=== PATIENT | female | born 1995 | race Caucasian/White ===

== ENCOUNTER 2018-10-04 08:20 | Day surgery (SDC) | payer BC ==
[2018-10-03 17:32] VITALS: BMI 22.8
[2018-10-04] MEDS ORDERED: ceFAZolin SODIUM 1 GM VIAL ONE ×3 (09:01→14:41)
[2018-10-04] MEDS ORDERED: MIDAZOLAM HCL 2 MG/2 ML SINGLE DOSE VIAL ONE (09:39)
[2018-10-04] MEDS ORDERED: LIDOCAINE HCL/PF 2% SDV 5ML VIAL ONE (09:40)
[2018-10-04] MEDS ORDERED: DEXAMETHASONE SOD PHOSPHATE 4 MG/1 ML VIAL ONE (09:40)
[2018-10-04] MEDS ORDERED: SODIUM CHLORIDE 0.9% P/F 10 ML VIAL IJ ONE ×2 (09:40→14:41)
[2018-10-04] MEDS ORDERED: OXYMETAZOLINE 0.05% NASAL SOLUTION 15 ML BOTTLE NS ONE ×2 (10:15→11:07)
[2018-10-04] MEDS ORDERED: ceFAZolin SODIUM 1 GM VIAL IVPB ONE (10:30)
[2018-10-04] MEDS ORDERED: KETAMINE HCL 200 MG/20 ML VIAL ONE (10:43)
[2018-10-04] MEDS ORDERED: PROMETHAZINE HCL 25 MG/1 ML VIAL IVPUSH PRN (10:52)
[2018-10-04] MEDS ORDERED: oxyCODONE HCL 5 MG TABLET PO PRN ×3 (10:52→16:34)
[2018-10-04] MEDS ORDERED: ONDANSETRON 4 MG/2 ML VIAL IVPUSH PRN (10:52)
[2018-10-04] MEDS ORDERED: LACTATED RINGERS SOLUTION 1,000 ML IV SCH ×2 (11:00→17:00)
[2018-10-04] MEDS ORDERED: LIDOCAINE 1%/EPI 1:100000 (50 ML MULTI DOSE VIAL) NR ONE ×2 (11:07)
[2018-10-04] MEDS ORDERED: ePHEDrine SULFATE 50 MG/1 ML AMPULE ONE (11:13)
[2018-10-04] MEDS ORDERED: PROPOFOL 20 ML ONE ×2 (12:06→14:10)
[2018-10-04] MEDS ORDERED: KETOROLAC TROMETHAMINE 30 MG/1 ML VIAL ONE (13:49)
[2018-10-04] MEDS ORDERED: NEOSTIGMINE METHYLSULFATE 0.5 MG/ML - 10 ML MDV ONE (15:31)
[2018-10-04] MEDS ORDERED: GLYCOPYRROLATE 0.2 MG/1 ML VIAL ONE (15:31)
[2018-10-04] MEDS ORDERED: ACETAMINOPHEN 1000 MG/100 ML VIAL (NON FORMULARY) IVPB ONE (16:30)
[2018-10-04] MEDS ORDERED: ONDANSETRON 4 MG/2 ML VIAL IVPB PRN (16:34)
[2018-10-04 18:02] VITALS: BP 113/60; PULSE 69; TEMP 97.3
--- NOTE | 2018-10-05 01:01 | OP ---
DATE OF OPERATION: 10/04/2018 TITLE OF PROCEDURE: Septoplasty with correction of nasal tip and dorsal deformity. ATTENDING SURGEON: Alejandro Castro MD TELEVISION NEWS PHOTOGRAPHER: There are no assistants. ANESTHESIA: General endotracheal anesthesia. The patient is marked in the holding area, awake and aware of the potential scars. She is counseled thoroughly on all risks, benefits, and alternatives to the procedure, understands, and agrees to proceed. Patient is given a g of Ancef preoperatively, brought to the operating room, and placed in a supine position. Position is carefully checked by surgical and anesthesia team. Pinzon catheter was placed and removed at the end of the procedure. After anesthesia was given, the patient is prepared with Afrin-soaked cottonoids in each nostril as well as a total of 10 mL of 1% lidocaine with 1:100,000 epinephrine injected into the septum as well as into the areas for dissection. At this point, the throat pack is placed which was removed at the end of the procedure. It should be noted that the Pinzon catheter was removed the end of the procedure. At this point, patient was then prepped and draped in standard surgical fashion. A timeout is called. Patient, procedure, site, and side were verified. A transcolumellar incision was made, and this was connected to bilateral running incisions at the caudal border of the lower lateral cartilages. The incisions are connected, and dissection is carried at a level of the lower lateral cartilages leaving well vascularized subcutaneous tissue on the nasal skin. Dissection was then carried over the nasal dorsum where the dorsum is fully exposed exposing cartilaginous and dorsal bump. The cartilages are then temporarily with stay sutures, and anterior septal angle is identified. The septum is dissected first with dental amalgam to expose the cartilage and then using Jay elevator to continue in a submucoperichondrial plane on both sides of the septum. 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 There is residual cartilage which is able to be removed. The cartilage is used for several grafts in this procedure. A 1.5 cm dorsal and caudal strut are left in the septum. A strip of septal support is placed on the caudal septum on the left side in order to straighten the septum. The right side is scored to allow for convexity to develop on the right. This graft is applied with a 5-0 nylon suture mattressed along the caudal septum. The dorsal septum is trimmed to reduce the nasal dorsal hump. Upper lateral cartilages are judiciously trimmed as needed to perfect the contour. The dorsum is then rasped with the J6, 5, 4, and 3 Foman bernardino rasp until the nasal dorsal height is equivalent to the nasal cartilaginous height. Prior to osteotomies, bilateral spur grafts are patterned and placed at the cephalad border of the dorsal septum. These are secured with 5-0 PDS mattress suture. At this point, bilateral osteotomies were made lateral pyriform aperture incisions were made to expose the pyriform aperture. A Cas elevator is used on the external portion of the bone. A 4 single guarded curved osteotomy is used for a low to high osteotomy bilaterally. Infractures are performed bilaterally. The tip is fashioned with cephalic trim very slightly leaving greater than 8-cm rim strips interdomal 5-0 nylon suture with knots buried are used to shape and project the tip. A columellar strut is placed in between the medial crura. It is sandwiched to the medial crura with a 5-0 PDS suture. A tech style tip graft and an additional onlay crushed cartilage graft are then secured to the tip for additional tip projection. These are secured with 6-0 nylon suture. A butterfly style infratip lobular graft is then placed using the cephalic trim of the lower lateral cartilages to fill out the infratip lobule. All tissues are pink and viable. Skin redraped. There was an excellent aesthetic result. The transcolumellar incision is closed with a 6-0 nylon suture. At each soft triangle, a small piece of crushed cartilage is applied into a rim pocket prophylactically to prevent for rim notching. The closure of the remaining incision is now performed with a 5-0 chromic gut suture. Internal nasal splints are applied and secured with a transseptal 4-0 Prolene suture. An external Randy splint is applied, and the patient awoken from anesthesia having tolerated the procedure well and without complication. ALEJANDRO CASTRO M.D. JORGE [id number]
== END 2018-10-04 19:00 | disposition home or self-care (01) ==
LOC: JASU-SURG 08:20
PROVIDERS: ATTEND Plastic Surgery
PROC: 09UK87Z Supplement Nasal Mucosa and Soft Tissue with Autologous Tissue Substitute, Via Natural or Artificial Opening Endoscopic (ICD-10-PCS; principal; 2018-10-04 09:30)
DX: J34.2 Deviated nasal septum (principal); J34.89 Other specified disorders of nose and nasal sinuses
CPT/HCPCS: 84703; 94760